=== PATIENT | female | born 1970 | race Caucasian/White ===

== ENCOUNTER 2017-02-17 18:25 | Emergency (ER) | payer BC ==
[2017-02-17 18:26] VITALS: BMI 34.3
[2017-02-17 18:32] VITALS: TEMP 98.3
[2017-02-17] MEDS ORDERED: Sodium Chloride 0.9% 1,000 ML IV STA (18:57)
[2017-02-17] MEDS ORDERED: DiphenhydrAMINE 50 mg/ml Inj IVP STA (18:57)
--- NOTE | 2017-02-17 19:07 | ED PDOC ---
Arrival/HPI <Janie Currie - Last Filed: 02/17/17 20:37> <RylieDay - Last Filed: 02/17/17 20:53> - General Chief Complaint: Headache Time Seen by Provider: 02/17/17 18:38 - History of Present Illness Narrative History of Present Illness (Text): 02/17/17 19:02 46 y/o M w/ PMHx of HTN and migraines presents to the ED c/o headache, N/V. Pt states pain woke her from sleep @11am. Pain has been getting progressively worse despite taking dose of Excedrin. Pain described as being hit w/ a hammer. Pt admits to mild photophobia, moderate sensitivity to sound. Denies auras or changes in vision. Pt admits to NBNB vomiting x5. Pt admits to dizziness and heaviness of her head. Pt denies recent illness, F/C, N/V, CP, SOB. No focal neurological deficits. (Janie Currie) Past Medical History - Provider Review Nursing Documentation Reviewed: Yes - Past History Past History: No Previous - Past Medical History Past Medical History: No Previous - Cardiac Hx Hypertension: Yes - Pulmonary Hx Respiratory Disorders: No - Neurological Hx Migraine: Yes - HEENT Hx HEENT Disorder: No - Renal Hx Renal Disorder: No - Endocrine/Metabolic Hx Endocrine Disorders: No - Hematological/Oncological Hx Blood Disorders: No Hx Blood Transfusions: No Hx Blood Transfusion Reaction: No - Integumentary Hx Dermatological Disorder: No - Musculoskeletal/Rheumatological Hx Musculoskeletal Disorders: No - Gastrointestinal Hx Gastrointestinal Disorders: No - Genitourinary/Gynecological Hx Genitourinary Disorders: No - Psychiatric Hx Psychophysiologic Disorder: No Hx Depression: No Hx Emotional Abuse: No Hx Physical Abuse: No Hx Substance Use: No - Surgical History Hx Section: Yes - Anesthesia Hx Anesthesia Reactions: No Hx Malignant Hyperthermia: No - Suicidal Assessment Feels Threatened In Home Enviroment: No <Janie Currie - Last Filed: 02/17/17 20:37> Family/Social History - Physician Review Nursing Documentation Reviewed: Yes Family/Social History: No Known Family HX Smoking Status: Never Smoked Hx Alcohol Use: No Hx Substance Use: No <Janie Currie - Last Filed: 02/17/17 20:37> Allergies/Home Meds <Janie Currie - Last Filed: 02/17/17 20:37> <Day Youngblood - Last Filed: 02/17/17 20:53> Allergies/Adverse Reactions: Allergies No Known Allergies Allergy (Verified 02/17/17 18:27) Review of Systems - Physician Review All systems were reviewed & negative as marked: Yes - Review of Systems Constitutional: absent: Fevers Cardiovascular: absent: Chest Pain <Janie Currie - Last Filed: 02/17/17 20:37> Physical Exam Vital Signs Reviewed: Yes Temperature: Afebrile Blood Pressure: Normal Pulse: Regular Respiratory Rate: Normal Appearance: Positive for: Non-Toxic, Comfortable Pain Distress: Mild Mental Status: Positive for: Alert and Oriented X 3 - Systems Exam Head: Present: Atraumatic, Normocephalic Pupils: Present: PERRL Extroacular Muscles: Present: EOMI Conjunctiva: Present: Normal Neck: Present: Normal Range of Motion Respiratory/Chest: Present: Clear to Auscultation, Good Air Exchange. No: Respiratory Distress, Accessory Muscle Use Cardiovascular: Present: Regular Rate and Rhythm, Normal S1, S2. No: Murmurs Abdomen: Present: Normal Bowel Sounds. No: Tenderness, Distention, Peritoneal Signs Upper Extremity: Present: Normal Inspection. No: Cyanosis, Edema Lower Extremity: Present: Normal Inspection. No: Edema Neurological: Present: GCS=15, CN II-XII Intact, Speech Normal, Motor Func Grossly Intact, Normal Sensory Function Skin: Present: Warm, Dry, Normal Color Psychiatric: Present: Alert, Oriented x 3, Normal Insight, Normal Concentration <Janie Currie - Last Filed: 02/17/17 20:37> Medical Decision Making <Janie Currie - Last Filed: 02/17/17 20:37> <Day Youngblood - Last Filed: 02/17/17 20:53> ED Course and Treatment: 02/17/17 19:08 46 y/o F w/ migraine - Benadryl - Toradol - Reglan - Pepcid - NS 1000 bolus - Head CT - reassess and dispo 02/17/17 20:[address] scan. Awaiting official read from [facility]. (Janie Currie) Patient Seen With Resident: In agreement with resident note which contains more details about the patient. Patient was seen and evaluated with resident. Came up with plan and treatment together. A 46 year old female with headache, dizziness, nausea and vomiting. Additional HPI details as noted by resident. No acute findings on physical findings. Ordered head CT and POC urine . Will give patient Pepcid, Toradol, IV fluids, Reglan and Benadryl. 02/17/17 20:49 Patient with history of frequent headaches, often with photophobia and n/v over the past 4 years; she has never been worked up before, and the one she is here with today is similar in nature to the ones she has had over the past 4 years. Imaging is negative. Normal neuro exam. Feels much better after meds - will d/ c on fioricet and have her follow up pmd and neuro. (Day Youngblood) - RAD Interpretation Narrative RAD Interpretations (Text): 02/17/17 20:[address] FINDINGS: Artifacts: Streak artifact relating to right ear piercing. Brain: Volume loss, predominantly frontal. No acute hemorrhage. No acute infarct. No significant white matter abnormalities. Probable empty sella. Ventricles: No hydrocephalus. Bones/joints: Unremarkable. No acute fracture. Soft tissues: See above. Sinuses: Unremarkable as visualized. No acute sinusitis. Mastoid air cells: Unremarkable as visualized. No mastoid effusion. IMPRESSION: No acute findings. Nonacute findings as above (Janie Currie) Radiology Orders: 02/17/17 19:00 HEAD W/O CONTRAST [CT] Stat - Medication Orders Current Medication Orders: Discontinued Medications Diphenhydramine HCl (Benadryl) 5 mg IVP STAT STA Stop: 02/17/17 18:58 Last Admin: 02/17/17 19:09 Dose: 5 mg Famotidine (Pepcid) 20 mg IVP STAT STA Stop: 02/17/17 18:58 Last Admin: 02/17/17 19:10 Dose: 20 mg Sodium Chloride (Sodium Chloride 0.9%) 1,000 mls @ 999 mls/hr IV .Q1H1M STA Stop: 02/17/17 19:57 Last Admin: 02/17/17 19:09 Dose: 999 mls/hr Ketorolac Tromethamine (Toradol) 30 mg IVP STAT STA Stop: 02/17/17 18:58 Last Admin: 02/17/17 19:10 Dose: 30 mg Metoclopramide HCl (Reglan) 10 mg IVP STAT STA Stop: 02/17/17 18:58 Last Admin: 02/17/17 19:09 Dose: 10 mg - PA / PENCIL MAKER / Resident Statement / has reviewed & agrees with the documentation as recorded. / has examined the patient and agrees with the treatment plan. <Day Youngblood - Last Filed: 02/17/17 20:53> Disposition/Present on Arrival - Present on Arrival Any Indicators Present on Arrival: No History of DVT/PE: No History of Uncontrolled Diabetes: No Urinary Catheter: No History of Decub. Ulcer: No History Surgical Site Infection Following: None - Disposition Have Diagnosis and Disposition been Completed?: Yes Disposition Time: 20:32 Patient Plan: Discharge <Janie Currie - Last Filed: 02/17/17 20:37> - Disposition Patient Plan: Discharge <Day Younglbood - Last Filed: 02/17/17 20:53> - Disposition Diagnosis: Migraine Disposition: HOME/ ROUTINE Patient Problems: Current Active Problems Problem Status Onset Migraine Acute Condition: STABLE Discharge Instructions (ExitCare): Migraine Headache (ED), Tension Headache (ED ), Acute Headache (ED) Additional Instructions: Follow up w/ primary medical doctor within 1 week Take medication as prescribed May take Tylenol and Ibuprofen for headache Return to the ED if any new or concerning symptoms. Prescriptions: Acetaminophen/Butalbital/Caf [Fioricet] 1 - 2 tab PO Q6H PRN #15 tab PRN Reason: Headache Referrals: Devin Gooden MD [Staff Provider] - Follow up with primary Rogelio Magallanes MD [Primary Care Provider] - Follow up with primary [facility] [Outside] - Follow up with primary Forms: WORK NOTE
[2017-02-17 20:57] VITALS: BP 119/72; PULSE 76; RESP 16; O2SAT 99
--- NOTE | 2017-02-18 07:33 | CT ---
PROCEDURE: CT HEAD WITHOUT CONTRAST. HISTORY: Headache COMPARISON: None available. TECHNIQUE: Axial computed tomography images were obtained through the head/brain without intravenous contrast. Radiation dose: Total exam DLP = 774.23 mGy-cm. This CT exam was performed using one or more of the following dose reduction techniques: Automated exposure control, adjustment of the mA and/or kV according to patient size, and/or use of iterative reconstruction technique. FINDINGS: HEMORRHAGE: No intracranial hemorrhage. BRAIN: Moran-white matter differentiation is preserved. There is no territorial infarction. There is no mass, mass effect or abnormal extra-axial fluid collection. VENTRICLES: There is mild global bifrontal volume loss and proportionate enlargement of the ventricles and cortical sulci. CALVARIUM: Unremarkable. PARANASAL SINUSES: Unremarkable as visualized. No significant inflammatory changes. MASTOID AIR CELLS: Unremarkable as visualized. No inflammatory changes. OTHER FINDINGS: None. IMPRESSION: No acute intracranial abnormality. Mild age advanced bifrontal volume loss.
== END 2017-02-17 21:01 | disposition home or self-care (01) ==
LOC: ED 18:25
DX: G43.109 Migraine with aura, not intractable, without status migrainosus (principal); R51 Headache
CPT/HCPCS: 70450; 96361; 96374; 96375; 99284; J1200; J1885; J2765; J7040